=== PATIENT | male | born 1970 | race African-American/Black ===

== ENCOUNTER 2023-04-04 12:52 | Observation (INO) | payer OTHER, SELFPAY ==
[2023-04-04 13:12] LABS: Absolute Lymphocytes (CBC) 1.4 K/uL (0.7-4.9); Lymphocytes % 29.3 % (15.3-44.8); MCV 94.1 fL (80-100); MPV 7.9 fL (7.6-11.3); Platelets 230 thou/uL (152-406); RBC Red Blood Cell Count 5.21 M/uL (4.33-5.43)
[2023-04-04 13:13] LABS: Protime INR 0.95
[2023-04-04] MEDS ORDERED: ASPIRIN 81 MG CHEWABLE TABLET ONE (13:18)
[2023-04-04] MEDS ORDERED: ONDANSETRON 4 MG/2 ML VIAL ONE (13:18)
[2023-04-04] MEDS ORDERED: MORPHINE 4 MG/ML SYR ONE (13:18)
[2023-04-04] MEDS ORDERED: NA CHLORIDE 0.9% 1,000 ML ONE (13:19)
[2023-04-04] MEDS ORDERED: FAMOTIDINE 20 MG/2 ML VIAL IV ONE (13:19)
[2023-04-04 13:30] LABS: Albumin 3.9 g/dL (3.4-5.0); Bilirubin Direct 0.2 mg/dL (0-0.2); Bilirubin Indirect, Calculated 0.4 mg/dL (0.2-0.8); Bilirubin Total 0.6 mg/dL (0.2-1.0); Magnesium 2.1 mg/dL (1.6-2.4); Protein, Total 8.4 g/dL (6.4-8.2); Troponin High Sensitivity 16.6 pg/mL (<58.9)
--- NOTE | 2023-04-04 13:52 | RAD REPORT ---
EXAM DESCRIPTION: RAD - Chest Single View - 04/04/2023 1:45 pm CLINICAL HISTORY: CHEST PAIN Chest pain. COMPARISON: <Comparisons> FINDINGS: Portable technique limits examination quality. The lungs are grossly clear. The heart is normal in size. No displaced fractures. IMPRESSION: No acute intrathoracic process suspected.
--- NOTE | 2023-04-04 13:58 | RAD REPORT ---
EXAM DESCRIPTION: CT - Angio Aorta For Dissection - 04/04/2023 1:44 pm CLINICAL HISTORY: Chest pain radiating to the back. ABD PAIN COMPARISON: <Comparisons> TECHNIQUE: CT angiography of the aorta was performed with MIPs. All CT scans are performed using dose optimization technique as appropriate and may include automated exposure control or mA/KV adjustment according to patient size. FINDINGS: A left aortic arch is present with normal branching pattern of the great vessels.No acute aortic finding is seen such as aneurysm, penetrating ulcer or dissection. The celiac axis, SMA, CLYDE and renal arteries are patent. No evidence of pulmonary embolism. The lungs are clear. The liver demonstrates no focal mass or biliary dilatation.The spleen, pancreas, adrenal glands and k idneys are within normal limits for arterial phase imaging. No bowel obstruction, free fluid or abscess.Normal appendix. Moderate fat containing umbilical hernia .No pathologic enlarged lymphadenopathy identified.Mildly prominent prostate gland projecting into th e bladder base. No fracture or worrisome bone lesion seen. IMPRESSION: No acute aortic finding is demonstrated.
--- NOTE | 2023-04-04 14:31 | ER ---
Nurse's Notes [facility] Name: Nel Cochran Age: 52 yrs Sex: Male : 1970 Arrival Date: 04/04/2023 Time: 12:52 Bed 6 Private MD: Diagnosis: Chest pain, unspecified;Chest pain on breathing;Dyspnea;Essential (primary) hypertension Presentation: 04/04 12:54 Chief complaint: EMS states: "Toned out for left sided chest pain that radiates to left mb9 shoulder, arm, and neck for the past 4 days. Pt states when chest pain occurs, he has difficulty breathing.". Coronavirus screen: Vaccine status: Patient reports receiving the 2nd dose of the covid vaccine. Ebola Screen: No symptoms or risks identified at this time. Initial Sepsis Screen: Does the patient meet any 2 criteria? No. Patient's initial sepsis screen is negative. Does the patient have a suspected source of infection? No. Patient's initial sepsis screen is negative. Risk Assessment: Do you want to hurt yourself or someone else? Patient reports no desire to harm self or others. Onset of symptoms was 2022. 12:54 Method Of Arrival: EMS: [facility] mb9 12:54 Acuity: WANDER 3 mb9 Triage Assessment: 12:57 General: Appears uncomfortable, Behavior is cooperative. Pain: Complains of pain in mb9 chest Pain radiates to left arm and neck Pain currently is 8 out of 10 on a pain scale. Quality of pain is described as sharp, shooting, Pain began 2-3 days ago. Is continuous. Neuro: Bliss Agitation-Sedation Scale (RASS): 0 - Alert and Calm Level of Consciousness is awake, alert, obeys commands, Oriented to person, place, time, situation, Appropriate for age. Cardiovascular: Reports chest pain, shortness of breath, Patient's skin is warm and dry. Respiratory: Airway is patent Respiratory effort is even, unlabored, Respiratory pattern is regular, symmetrical. GI: Patient currently denies nausea. : No signs and/or symptoms were reported regarding the genitourinary system. Derm: Skin is pink, warm \\T\\ dry. Musculoskeletal: Range of motion: intact in all extremities. Historical: - Allergies: 12:56 No Known Allergies; mb9 - Home Meds: 12:56 Lisinopril Oral [Active]; mb9 - PMHx: 12:56 Hypertensive disorder; Hyperthyroidism; mb9 - PSHx: 12:56 Thyroidectomy; mb9 - Immunization history:: Adult Immunizations up to date. - Social history:: Smoking status: Patient reports the use of cigarette tobacco products, smokes one-half pack cigarettes per day. Screenin:58 [facility] ED Fall Risk Assessment (Adult) History of falling in the last 3 months, mb9 including since admission No falls in past 3 months (0 pts) Confusion or Disorientation No (0 pts) Intoxicated or Sedated No (0 pts) Impaired Gait No (0 pts) Mobility Assist Device Used No (0 pt) Altered Elimination No (0 pt) Score/Fall Risk Level 0 - 2 = Low Risk Oriented to surroundings, Maintained a safe environment, Educated pt \\T\\ family on fall prevention, incl call for assistance when getting out of bed. Abuse screen: Denies threats or abuse. Nutritional screening: No deficits noted. Tuberculosis screening: No symptoms or risk factors identified. Assessment: 13:00 General: Appears comfortable, Behavior is calm, cooperative. Pain: Complains of pain in aa5 left side of chest Pain radiates to left arm and neck Pain currently is 6 out of 10 on a pain scale. Quality of pain is described as sharp, shooting, Pain began 4 days ago Is intermittent. Neuro: Level of Consciousness is awake, alert, obeys commands, Oriented to person, place, time, situation. Cardiovascular: Heart tones S1 S2 present Rhythm is regular. Respiratory: Airway is patent Respiratory effort is even, unlabored, Respiratory pattern is regular, symmetrical. GI: Abdomen is round non-distended, Bowel sounds present X 4 quads. Abd is soft and non tender X 4 quads. : No signs and/or symptoms were reported regarding the genitourinary system. EENT: No signs and/or symptoms were reported regarding the EENT system. Derm: Skin is dry, Skin is normal, Skin temperature is warm. Musculoskeletal: Range of motion: intact in all extremities. 14:00 Neuro: Level of Consciousness is awake, alert, obeys commands, Oriented to person, aa5 place, time, situation. Respiratory: Airway is patent Respiratory effort is even, unlabored, Respiratory pattern is regular, symmetrical. Derm: Skin is dry, Skin is normal, Skin temperature is warm. 15:30 Reassessment: No changes from previously documented assessment. General: Appears aa5 comfortable. 17:05 Neuro: Level of Consciousness is awake, alert, obeys commands, Oriented to person, aa5 place, time, situation. Respiratory: Airway is patent Respiratory effort is even, unlabored, Respiratory pattern is regular, symmetrical. Derm: Skin is dry, Skin is normal, Skin temperature is warm. 17:05 Reassessment: Pt requesting dinner. Phlebotomy at bedside drawing admission labs. . aa5 17:11 Reassessment: Attempted to contact Cafe personnel, no answer. . aa5 18:04 Reassessment: Spoke to foundry supervisor to check about pt's food tray. . aa5 Vital Signs: 12:54 BP 146 / 91; Pulse 75; Resp 18; Temp 98.4; Pulse Ox 98% on R/A; Weight 92.99 kg; Height mb9 5 ft. 8 in. ; Pain 8/10; 14:03 BP 133 / 86; Pulse 66; Resp 18; Pulse Ox 95% on R/A; ld1 15:04 BP 157 / 106; Pulse 62; Resp 17; Pulse Ox 99% on R/A; rs5 15:41 BP 150 / 111; Pulse 60; Resp 18; Pulse Ox 98% ; rs5 16:26 BP 141 / 102; Pulse 53; Resp 18; Pulse Ox 96% on R/A; ld1 18:00 BP 137 / 82; Pulse 55; Resp 16 S; Pulse Ox 98% on R/A; aa5 12:54 Body Mass Index 31.17 (92.99 kg, 172.72 cm) mb9 12:54 Pain Scale: Adult mb9 Cee Coma Score: 14:29 Eye Response: spontaneous(4). Motor Response: obeys commands(6). Verbal Response: aditya oriented(5). Total: 15. ED Course: 12:54 Patient arrived in ED. ld1 12:54 Arm band placed on. mb9 12:55 Miles Villagran MD is Attending Physician. aditya 12:56 Triage completed. mb9 12:58 Placed in gown. Bed in low position. Call light in reach. Side rails up X 1. Client mb9 placed on continuous cardiac and pulse oximetry monitoring. NIBP monitoring applied. nuclear power reactor operator on. 13:03 Alvarado, Thea, RN is Primary Nurse. aa5 13:03 Inserted saline lock: 20 gauge in right forearm, using aseptic technique. Blood rs5 collected. 13:44 X-ray completed. Portable x-ray completed in exam room. Patient tolerated procedure 1 well. 13:45 CT Aorta for Dissection In Process Unspecified. EDMS 13:46 XRAY Chest (1 view) In Process Unspecified. EDMS 14:30 Jabier Murillo is Hospitalizing Provider. [facility] 18:15 No provider procedures requiring assistance completed. Patient admitted, IV remains in aa5 place. Administered Medications: 13:10 Drug: Aspirin PO Chewable Tablet 324 mg Route: PO; aa5 14:22 Follow up: Response: No adverse reaction aa5 13:20 Drug: NS 0.9% IV 1000 ml Route: IV; Rate: 125 ml/hr; Site: right forearm; aa5 18:15 Follow up: IV Status: Infusion continued upon admission aa5 13:20 Drug: Famotidine IVP 20 mg Route: IVP; Site: right forearm; aa5 13:30 Follow up: Response: No adverse reaction aa5 13:20 Drug: morphine IVP or IV 4 mg Route: IVP; Infused Over: 4 mins; Site: right forearm; aa5 13:30 Follow up: Response: No adverse reaction aa5 13:20 Drug: Ondansetron IVP 4 mg Route: IVP; Site: right forearm; aa5 13:30 Follow up: Response: No adverse reaction aa5 14:50 Drug: Potassium PO Effervescent Tablet 50 mEq Route: PO; aa5 18:00 Follow up: Response: No adverse reaction aa5 14:50 Drug: Enoxaparin Sub-Q 1 mg/kg Route: Sub-Q; Site: right lower abdomen; aa5 18:00 Follow up: Response: No adverse reaction aa5 Medication: 12:58 VIS not applicable for this client. mb9 Outcome: 14:30 Decision to Hospitalize by Provider. aditya 18:15 Admitted to Tele accompanied by tech, via wheelchair, with chart, Other Report called aa5 to admitting nurse 18:15 Condition: stable 18:15 Instructed on the need for admit, Demonstrated understanding of instructions. 18:20 Patient left the ED. aa5 Signatures: Dispatcher [employer] EDMS Miles Villagran MD MD cha Harvey, Martha mh1 Thea Alvarado, RN RN aa5 Dori Zepeda RN RN ld1 Joann Johnson, RN RN mb9 Kwaku Callejas RN RN rs5
--- NOTE | 2023-04-04 14:31 | EDPHYS ---
Physician Documentation [facility] Name: Nel Cochran Age: 52 yrs Sex: Male : 1970 Arrival Date: 04/04/2023 Time: 12:52 Bed 6 Private MD: ED Physician Miles Villagran HPI: 04/04 14:20 This 52 yrs old Male presents to ER via EMS with complaints of Chest Pain. aditya 14:20 The patient or guardian reports chest pain that is located primarily in the substernal aditya area, anterior chest wall, left. Onset: just prior to arrival, this morning. The pain radiates to left neck, Associated signs and symptoms: The patient has no apparent associated signs or symptoms. The chest pain is described as aching, sharp. Duration: The patient or guardian reports multiple episodes, with no pattern. Modifying factors: The symptoms are alleviated by nothing. the symptoms are aggravated by deep breath, exertion, movement. Severity of pain: At its worst the pain was moderate in the emergency department the pain has improved moderately. The patient has experienced similar episodes in the past, multiple times, FOR 3 WEEKS. Historical: - Allergies: 12:56 No Known Allergies; mb9 - Home Meds: 12:56 Lisinopril Oral [Active]; mb9 - PMHx: 12:56 Hypertensive disorder; Hyperthyroidism; mb9 - PSHx: 12:56 Thyroidectomy; mb9 - Immunization history:: Adult Immunizations up to date. - Social history:: Smoking status: Patient reports the use of cigarette tobacco products, smokes one-half pack cigarettes per day. ROS: 14:22 Constitutional: Negative for fever, chills, and weight loss, Eyes: Negative for injury, aditya pain, redness, and discharge, ENT: Negative for injury, pain, and discharge, Neck: Negative for injury, pain, and swelling, Abdomen/GI: Negative for abdominal pain, nausea, vomiting, diarrhea, and constipation, Back: Negative for injury and pain, : Negative for injury, bleeding, discharge, and swelling, MS/Extremity: Negative for injury and deformity, Skin: Negative for injury, rash, and discoloration, Neuro: Negative for headache, weakness, numbness, tingling, and seizure, Psych: Negative for depression, anxiety, suicide ideation, homicidal ideation, and hallucinations, Allergy/Immunology: Negative for hives, rash, and allergies, Endocrine: Negative for neck swelling, polydipsia, polyuria, polyphagia, and marked weight changes, Hematologic/Lymphatic: Negative for swollen nodes, abnormal bleeding, and unusual bruising. 14:22 Cardiovascular: Positive for chest pain, of the chest. 14:22 Respiratory: Positive for shortness of breath. Exam: 14:22 Constitutional: This is a well developed, well nourished patient who is awake, alert, aditya and in no acute distress. Head/Face: Normocephalic, atraumatic. Eyes: Pupils equal round and reactive to light, extra-ocular motions intact. Lids and lashes normal. Conjunctiva and sclera are non-icteric and not injected. Cornea within normal limits. Periorbital areas with no swelling, redness, or edema. ENT: Nares patent. No nasal discharge, no septal abnormalities noted. Tympanic membranes are normal and external auditory canals are clear. Oropharynx with no redness, swelling, or masses, exudates, or evidence of obstruction, uvula midline. Mucous membranes moist. Neck: Trachea midline, no thyromegaly or masses palpated, and no cervical lymphadenopathy. Supple, full range of motion without nuchal rigidity, or vertebral point tenderness. No Meningismus. Chest/axilla: Normal chest wall appearance and motion. Nontender with no deformity. No lesions are appreciated. Cardiovascular: Regular rate and rhythm with a normal S1 and S2. No gallops, murmurs, or rubs. Normal PMI, no JVD. No pulse deficits. Respiratory: Lungs have equal breath sounds bilaterally, clear to auscultation and percussion. No rales, rhonchi or wheezes noted. No increased work of breathing, no retractions or nasal flaring. Abdomen/GI: Soft, non-tender, with normal bowel sounds. No distension or tympany. No guarding or rebound. No evidence of tenderness throughout. Back: No spinal tenderness. No costovertebral tenderness. Full range of motion. Skin: Warm, dry with normal turgor. Normal color with no rashes, no lesions, and no evidence of cellulitis. MS/ Extremity: Pulses equal, no cyanosis. Neurovascular intact. Full, normal range of motion. Neuro: Awake and alert, GCS 15, oriented to person, place, time, and situation. Cranial nerves II-XII grossly intact. Motor strength 5/5 in all extremities. Sensory grossly intact. Cerebellar exam normal. Normal gait. Psych: Awake, alert, with orientation to person, place and time. Behavior, mood, and affect are within normal limits. 14:22 Musculoskeletal/extremity: Extremities: all appear grossly normal, with no appreciated pain with palpation, ROM: full active range of motion, full passive range of motion, Circulation is intact in all extremities. Sensation intact. Compartment Syndrome exam of affected extremity: is normal. Weight bearing: able to fully bear weight, without difficulty, DVT Exam: No signs of deep vein thrombosis. no pain, no swelling, no tenderness, negative Homans' sign noted on exam, no appreciated bluish discoloration, no erythema, no increased warmth. 14:29 ECG was reviewed by the Attending Physician. [facility] Vital Signs: 12:54 BP 146 / 91; Pulse 75; Resp 18; Temp 98.4; Pulse Ox 98% on R/A; Weight 92.99 kg; Height mb9 5 ft. 8 in. ; Pain 8/10; 14:03 BP 133 / 86; Pulse 66; Resp 18; Pulse Ox 95% on R/A; ld1 15:04 BP 157 / 106; Pulse 62; Resp 17; Pulse Ox 99% on R/A; rs5 15:41 BP 150 / 111; Pulse 60; Resp 18; Pulse Ox 98% ; rs5 16:26 BP 141 / 102; Pulse 53; Resp 18; Pulse Ox 96% on R/A; ld1 18:00 BP 137 / 82; Pulse 55; Resp 16 S; Pulse Ox 98% on R/A; aa5 12:54 Body Mass Index 31.17 (92.99 kg, 172.72 cm) mb9 12:54 Pain Scale: Adult mb9 [place] Coma Score: 14:29 Eye Response: spontaneous(4). Motor Response: obeys commands(6). Verbal Response: aditya oriented(5). Total: 15. MDM: 12:55 Patient medically screened. [facility] 14:26 Antibiotic administration: Not indicated. Differential diagnosis: Anemia Anxiety aditya Reaction asthma, Bronchitis CHF exacerbation, abnormal EKG, acute myocardial infarction, acute pericarditis, anxiety, coronary artery disease chest wall pain, congestive heart failure Cholelithiasis hiatal hernia, pancreatitis, peptic ulcer disease, pericarditis, pleurisy, pneumonia, pneumothorax, pulmonary embolus, stable angina, thoracic aortic disection, unstable angina, Myocardial Infarction Pneumothorax pulmonary edema, reactive airway disease. Differential Diagnosis altered mental status. HEART Score: History: Moderately Suspicious (1), ECG: Normal (0), Age: > 45 and < 65 years (1), Risk Factors: > or = 3 Risk factors for atherosclerotic disease (2), [Hypercholesterolemia] [Hypertension] [+ Family HX] Troponin: < or = 1 x Normal Limit (0). The patient was given aspirin in the Emergency Department. Immunization status: Influenza vaccine: within last 5 years. Data reviewed: vital signs, nurses notes, lab test result(s), EKG, radiologic studies, CT scan, plain films. Consideration of Admission/Observation Patient was admitted/placed on observation. Escalation of care including admission/observation considered. I considered the following discharge prescriptions or medication management in the emergency department Medications were administered in the Emergency Department. See MAR. Independent interpretation of the following test(s) in the Emergency Department EKG: See my EKG interpretation above. Test considered but Not performed: Ultrasound NO US GB. Historians other than the Patient: Family Member: . Care significantly affected by the following chronic conditions: Hypertension. Counseling: I had a detailed discussion with the patient and/or guardian regarding: the historical points, exam findings, and any diagnostic results supporting the discharge/admit diagnosis, the presence of at least one elevated blood pressure reading (>120/80) during this emergency department visit, lab results, radiology results, the need for further work-up and treatment in the hospital. 04/04 12:56 Order name: Basic Metabolic Panel; Complete Time: 14:18 [facility] 04/04 12:56 Order name: CBC with Diff; Complete Time: 14:18 aditya 04/04 12:56 Order name: LFT's; Complete Time: 14:18 [facility] 04/04 12:56 Order name: Magnesium; Complete Time: 14:18 04/04 12:56 Order name: NT PRO-BNP; Complete Time: 14:18 04/04 12:56 Order name: PT-INR; Complete Time: 14:18 04/04 12:56 Order name: Troponin HS; Complete Time: 14:18 04/04 12:56 Order name: Lipase; Complete Time: 14:18 [facility] 04/04 12:56 Order name: Urinalysis w/ reflexes; Complete Time: 23:37 aditya 04/04 14:20 Order name: TSH; Complete Time: 23:37 aditya 04/04 15:05 Order name: T4 Free; Complete Time: 23:37 EDMS 04/04 16:14 Order name: Magnesium; Complete Time: 23:37 EDMS 04/04 16:14 Order name: Phosphorus; Complete Time: 23:37 EDMS 04/04 16:14 Order name: Urinalysis w/ reflexes EDMS 04/04 16:14 Order name: Basic Metabolic Panel EDMS 04/04 16:14 Order name: Basic Metabolic Panel EDMS 04/04 16:14 Order name: CBC with Automated Diff EDMS 04/04 16:14 Order name: CBC with Automated Diff EDMS 04/04 16:14 Order name: Lipid Profile EDMS 04/04 16:14 Order name: Lipid Profile EDMS 04/04 16:15 Order name: Hemoglobin A1c; Complete Time: 23:37 EDMS 04/04 16:16 Order name: Troponin High Sensitivity EDMS 04/04 16:16 Order name: Troponin High Sensitivity; Complete Time: 23:37 EDMS 04/04 16:16 Order name: Troponin High Sensitivity; Complete Time: 23:37 EDMS 04/04 16:19 Order name: Basic Metabolic Panel; Complete Time: 23:37 EDMS 04/04 12:56 Order name: XRAY Chest (1 view); Complete Time: 14:18 aditya 04/04 13:00 Order name: CT Aorta for Dissection; Complete Time: 14:18 aditya 04/04 14:20 Order name: Echo w/ Doppler [facility] 04/04 12:56 Order name: EKG; Complete Time: 12:57 aditya 04/04 16:14 Order name: CONS Physician Consult EDKS 04/04 16:14 Order name: Heart Healthy EDMS 04/04 12:56 Order name: Cardiac monitoring; Complete Time: 12:58 aditya 04/04 12:56 Order name: EKG - Nurse/Tech; Complete Time: 13:03 aditya 04/04 12:56 Order name: IV Saline Lock; Complete Time: 13:03 aditya 04/04 12:56 Order name: Labs collected and sent; Complete Time: 13:03 04/04 12:56 Order name: O2 Per Protocol; Complete Time: 12:59 04/04 12:56 Order name: O2 Sat Monitoring; Complete Time: 12:59 aditya EC:29 Rate is 64 beats/min. Rhythm is regular. QRS [place] is Normal. [place] interval is normal. QRS aditya interval is normal. QT interval is normal. No Q waves. T waves are Normal. No ST changes noted. Clinical impression: NSR w/ Non-specific ST/T Changes and No evidence of ischemia. Interpreted by me. Reviewed by me. Administered Medications: 13:10 Drug: Aspirin PO Chewable Tablet 324 mg Route: PO; aa5 14:22 Follow up: Response: No adverse reaction aa5 13:20 Drug: NS 0.9% IV 1000 ml Route: IV; Rate: 125 ml/hr; Site: right forearm; aa5 18:15 Follow up: IV Status: Infusion continued upon admission aa5 13:20 Drug: Famotidine IVP 20 mg Route: IVP; Site: right forearm; aa5 13:30 Follow up: Response: No adverse reaction aa5 13:20 Drug: morphine IVP or IV 4 mg Route: IVP; Infused Over: 4 mins; Site: right forearm; aa5 13:30 Follow up: Response: No adverse reaction aa5 13:20 Drug: Ondansetron IVP 4 mg Route: IVP; Site: right forearm; aa5 13:30 Follow up: Response: No adverse reaction aa5 14:50 Drug: Potassium PO Effervescent Tablet 50 mEq Route: PO; aa5 18:00 Follow up: Response: No adverse reaction aa5 14:50 Drug: Enoxaparin Sub-Q 1 mg/kg Route: Sub-Q; Site: right lower abdomen; aa5 18:00 Follow up: Response: No adverse reaction aa5 Disposition Summary: 04/04/23 14:30 Hospitalization Ordered Hospitalization Status: Observation aditya Provider: Jabier Murillo cha Location: Telemetry/MedSurg (observation) aditya Condition: Stable aditya Problem: new aditya Symptoms: have improved aditya Bed/Room Type: Standard aditya Room Assignment: 414(04/04/23 18:03) bd Diagnosis - Chest pain, unspecified aditya - Chest pain on breathing aditya - Dyspnea aditya - Essential (primary) hypertension aditya Forms: - Medication Reconciliation Form aditya - SBAR form aditya - Leadership Thank You Letter aditya Signatures: Dispatcher [employer] Tanya Salamanca FNP-C [employer] Deborah Patel Diana, RN RN dw Anderson, Corey, MD MD cha Calderon, Audri RN RN aa5 Joann Johnson RN RN mb9 Corrections: (The following items were deleted from the chart) 17:54 14:30 aditya stevens 18:03 17:[address] [place] [address]
[2023-04-04] MEDS ORDERED: ENOXAPARIN 100 MG/ML SYR SQ ONE (14:51)
[2023-04-04] MEDS ORDERED: POTASSIUM 25 MEQ EFFERV TAB ONE (14:51)
[2023-04-04 15:02] LABS: Thyroid Stimulating Hormone 8.43 uIU/mL (0.358-3.740)
[2023-04-04 15:22] LABS: Urine Bilirubin NEGATIVE (Negative); Urine Blood Negative (Negative); Urine Clarity Clear (Clear); Urine Color Colorless (Yellow); Urine Glucose NEGATIVE (Negative); Urine Protein NEGATIVE (Negative); Urine Urobilinogen Normal (Normal)
[2023-04-04 15:23] LABS: Specific Gravity > 1.030 (1.005-1.030)
[2023-04-04] MEDS ORDERED: ACETAMINOPHEN 325 MG TABLET PO PRN (16:09)
[2023-04-04] MEDS ORDERED: HYDROCODONE/APAP 5/325 MG TAB PO PRN (16:09)
[2023-04-04] MEDS ORDERED: ONDANSETRON 4 MG/2 ML VIAL IV PRN (16:12)
--- NOTE | 2023-04-04 16:15 | P.HP ---
Certification for Inpatient Patient admitted to: Observation With expected LOS: <2 Midnights Patient will require the following post-hospital care: None Practitioner: I am a practitioner with admitting privileges, knowledge of patient current condition, hospital course, and medical plan of care. Services: Services provided to patient in accordance with Admission requirements found in Title 42 Section 412.3 of the Code of Federal Regulations Patient History Date of Service: 04/04/23 Reason for admission: Chest pain History of Present Illness: Patient is a 52-year-old male with a past medical history significant for hypertension, hyperthyroidism, nicotine dependence who presents with complaint of left chest pain that is being ongoing intermittently for the past 4 days. Patient rated pain as 10/10 in severity and described pain as stabbing in quality. Patient indicated that pain radiates to his back, neck, shoulder and left arm. Patient reported associated signs and symptoms of left finger tingling and shortness of breath. Patient denies any other signs or symptoms. Symptoms are aggravated or relieved by nothing. Patient decided to present to the hospital for medical evaluation. Allergies No Known Allergies Allergy (Unverified 04/04/23 16:19) - Past Medical/Surgical History -: Hypertension -: Hyperthyroidism -: Nicotine dependence. -: Thyroidectomy - Family History Father -: Hypertension, Stroke, Other (see notes) (Thyroid disease) Mother -: Hypertension, Other (see notes) (Thyroid disease) - Social History Smoking Status: Current every day smoker Counseled patient to stop smoking for: less than 10 minutes Smoking therapy provided: Yes Patient receptive to therapy: Yes Alcohol use: Yes CD- Drugs: No Caffeine use: Yes Place of Residence: Home Review of Systems General: Unremarkable Eyes: Unremarkable ENT: Unremarkable Respiratory: Shortness of Breath, Unremarkable Cardiovascular: Chest Pain Gastrointestinal: Unremarkable Genitourinary: Unremarkable Musculoskeletal: Neck Pain, Shoulder Pain, Arm Pain, Back Pain Integumentary: Unremarkable Neurological: Other (Left fingers tingling) Lymphatics: Unremarkable Physical Examination - Physical Exam General: Alert, In no apparent distress, Oriented x3, Cooperative HEENT: Atraumatic, PERRLA, Mucous membr. moist/pink, EOMI, Sclerae nonicteric Neck: Supple, 2+ carotid pulse no bruit, No LAD, Without JVD or thyroid abnormality Respiratory: Clear to auscultation bilaterally, Normal air movement Cardiovascular: No edema, Regular rate/rhythm, Normal S1 S2 Capillary refill: <2 Seconds Gastrointestinal: Normal bowel sounds, Soft and benign, Non-distended, No tenderness Musculoskeletal: No clubbing, No swelling, No tenderness Integumentary: No rashes, No significant lesion Neurological: Normal gait, Normal speech, Normal strength at 5/5 x4 extr, Normal tone, Normal affect Lymphatics: No axilla or inguinal lymphadenopathy - Studies Laboratory Data (last 24 hrs) 04/04/23 04/04/23 04/04/23 12:59 12:59 12:59 WBC 4.90 Hgb 16.7 Hct 49.0 Plt Count 230 PT 10.5 INR 0.95 Sodium 134 L Potassium 3.0 L BUN 18 Creatinine 1.37 H Glucose 125 H Magnesium 2.1 Total Bilirubin 0.6 AST 33 ALT 41 Alkaline Phosphatase 62 Lipase 51 Assessment and Plan - Plan --Chest pain. To rule out ACS. Will trend serial troponins--negative so far. Echocardiogram pending to assess cardiac structures and function. Director Of Services consulted. Telemetry to monitor for any significant arrhythmia. We will await further recommendations from bicycle repair technician. -- Hypertension. Poorly controlled. We will manage BP with labetalol as needed. --Nicotine dependence. Patient placed on nicotine patch and counseled on tobacco cessation. --Hyperthyroidism. Continue home medication. -- Hypokalemia. Replete as needed. --CKD 2. Baseline functions unknown. We will continue to monitor renal functions. --Acute pain. We will manage pain with current pain medication regimen. --DVT prophylaxis with Lovenox subQ. Discharge Plan: Home Plan to discharge in: 48 Hours - Advance Directives Does patient have a Living Will: No Does patient have a Durable POA for Healthcare: No - Code Status/Comfort Care Code Status Assessed: Yes Physician Review: Patient Assessed, Agree with Above Assessment and Plan Critical Care: No
[2023-04-04 17:34] LABS: Magnesium 2.3 mg/dL (1.6-2.4); Phosphorus 4.1 mg/dL (2.5-4.9); Potassium 3.5 mEq/L (3.5-5.1)
[2023-04-04 18:52] VITALS: BMI 31.1
[2023-04-04] MEDS ORDERED: LABETALOL 20 MG/4ML SYRINGE IV PRN (19:15)
--- NOTE | 2023-04-04 19:54 | CON ---
Date of Consultation: 04/04/2023 Reason For Consultation: Chest pain. History Of Present Illness: A 52-year-old male with history of hypertension, hypothyroidism, present ed with chest pain. It is like a focal around the left breast and radiates to his neck. Pain can be 10/10, but certain chest wall movements and neck movements produces it, but there is no reproducible pain. Denies having any exertional chest pain, but he is not doing any strenuous activities lately. This has been going on and off for the past 2 days. No active chest pain. The present time. Past Medical History: Hypertension, hypothyroidism. Medications: Refer to reconciliation sheet for detailed list. Allergies: NO KNOWN DRUG ALLERGIES. Family History: No premature coronary artery disease or cancer. Social History: He is an active smoker about a pack per day. He does not use any drugs. He drinks alcohol regularly. Review of Systems: All systems reviewed and they were negative except what mentioned in HPI. Physical Examination: Vital Signs: Reviewed. Head and Neck: Pupils are equal, reactive to light. Intact eye movements. No JVD. No cervical lym phadenopathy. Neck is supple. Thyroid is not enlarged. Lungs: Clear to auscultation bilaterally. No rhonchi, wheezing, or crackles. No accessory muscle u se. Heart: Regular rate and rhythm. No extra sounds. Abdomen: Soft, nontender. Bowel sounds positive. No organomegaly. No masses or hernia. No rigidi ty or rebound. Extremities: No edema, clubbing, or cyanosis. Intact pulses. Skin: No rash. Neurologic: Alert, awake, oriented x3. No acute focal deficits appreciated. Investigations: Cardiac enzymes; he had 2 sets already, they were negative. BUN is 17, creatinine 1 .36, and hemoglobin is 16.7. Assessment And Recommendations: 1.Chest pain. Some typical features, but it could be musculoskeletal. Cardiac enzymes are negative . Given the fact that I could not reproduce the pain, I recommend a stress test and an echocardiogra m tomorrow morning and plan accordingly. For now baby aspirin and pain control using nitroglycerin i f needed. 2.Hypertension. Blood pressure is borderline. Resume home medications and adjust as needed. SR/MODL Voice ID: [id number] Report ID: [id number]
[2023-04-05 06:36] LABS: Absolute Lymphocytes (CBC) 1.8 K/uL (0.7-4.9); Hematocrit 46.8 % (39.6-49.0); MCV 94.8 fL (80-100); MPV 7.9 fL (7.6-11.3); Platelets 221 thou/uL (152-406); RBC Red Blood Cell Count 4.94 M/uL (4.33-5.43)
[2023-04-05 07:03] LABS: BUN Blood Urea Nitrogen 17 mg/dL (7-18); Bicarbonate 30 mEq/L (21-32); Glomerular Filtration Rate 61 ml/min (=/>90); Glucose Level 103 mg/dL (74-106); HDL Cholesterol 34 mg/dL (40-60); Potassium 3.2 mEq/L (3.5-5.1); Sodium Level 136 mEq/L (136-145)
[2023-04-05] MEDS ORDERED: REGADENOSON 0.4 MG/5 ML SYR IV ONE (07:28)
[2023-04-05 07:35] LABS: LDL, Direct 104 mg/dL (100-129)
[2023-04-05 08:32] VITALS: BP 144/98; TEMP 97.2
--- NOTE | 2023-04-05 08:40 | RAD REPORT ---
EXAM DESCRIPTION: NM - Rest Stress Cardiac Imaging - 04/05/2023 8:23 am CLINICAL HISTORY: Chest pain. COMPARISON: None. TECHNIQUE: The patient was administered 10.9 mCi of Tc 99m Sestamibi prior to resting SPECT imaging of the heart. The patient was then administered 31.7 mCi of Tc 99m Sestamibi following exercise or ph armacologic stress. Multiplanar SPECT images were reviewed. FINDINGS: There is uniformity of radiotracer uptake involving the entire left ventricular myocardiu m on rest and stress images. The left ventricular ejection fraction equals 44% IMPRESSION: Negative for a myocardial perfusion defect
[2023-04-05] MEDS ORDERED: ASPIRIN 81 MG CHEWABLE TABLET PO SCH (09:00)
[2023-04-05] MEDS ORDERED: NICOTINE 21 MG/PAT TD SCH (09:00)
[2023-04-05] MEDS ORDERED: POTASSIUM CL SA 10 MEQ TAB PO ONE (09:00)
[2023-04-05] MEDS ORDERED: ENOXAPARIN 40 MG/0.4 ML SQ SCH (09:00)
--- NOTE | 2023-04-05 09:21 | P.DS ---
Admission Date: 04/04/23 Discharge Date: 04/05/23 Disposition: ROUTINE DISCHARGE Discharge Condition: GOOD Reason for Admission: Chest pain Consultations: Cardiology - Dr. Dejesus Brief History of Present Illness: 52yo M, PMH: hypertension, hyperthyroidism, nicotine dependence Patient presents with complaint of left chest pain that is being ongoing intermittently for the past 4 days. Patient rated pain as 10/10 in severity and described pain as stabbing in quality. Patient indicated that pain radiates to his back, neck, shoulder and left arm. Patient reported associated signs and symptoms of left finger tingling and shortness of breath. Patient denies any other signs or symptoms. Symptoms are aggravated or relieved by nothing. Hospital Course: Problem List: Chest pain Hypertension Hyperthyroidism Nicotine Dependence Hypokalemia CKD 2 Patient presented with intermittent chest pain. Troponins were negative. EKG normal, BNP normal, chest x-ray, CT chest were negative for any acute findings, no Pulmonary embolism. Cardiology was consulted. Dr. Dejesus recommended stress test which was negative. No acute findings to warrant further inpatient evaluation, and chest pain atypical. Echo was performed prior to discharge. Patient to follow up with Cardiology. Chest pain sounded MSK in etiology, however not reproducible on exam with palpation. Not entirely consistent with GERD either. Follow up: PCP in 3-5 days Cardiology within 1-2 weeks Physical Exam: GEN: Alert, oriented, NAD HEENT: Normal conjunctiva, sclera anicteric CV: Regular rate and rhythm, no edema Pulm: Nonlabored respirations on room air ABD: Soft, nontender, nondistended MSK: No chest wall tenderness Neuro: Normal speech, normal affect Vital Signs/Physical Exam: Temp Pulse Resp BP Pulse Ox 97.2 F 62 16 144/98 H 98 04/05/23 08:00 04/05/23 08:00 04/05/23 08:00 04/05/23 08:00 04/05/23 08:00 Laboratory Data at Discharge: WBC 4.30 thou/uL (4.3-10.9) 04/05/23 05:51 Hgb 15.9 g/dL (13.6-17.9) 04/05/23 05:51 Hct 46.8 % (39.6-49.0) 04/05/23 05:51 Plt Count 221 thou/uL (152-406) 04/05/23 05:51 PT 10.5 SECONDS (9.5-12.5) 04/04/23 12:59 INR 0.95 04/04/23 12:59 Sodium 136 mEq/L (136-145) 04/05/23 05:51 Potassium 3.2 mEq/L (3.5-5.1) L 04/05/23 05:51 BUN 17 mg/dL (7-18) 04/05/23 05:51 Creatinine 1.37 mg/dL (0.70-1.30) H 04/05/23 05:51 Glucose 103 mg/dL (74-106) 04/05/23 05:51 Phosphorus 4.1 mg/dL (2.5-4.9) 04/04/23 17:05 Magnesium 2.3 mg/dL (1.6-2.4) 04/04/23 17:05 Total Bilirubin 0.6 mg/dL (0.2-1.0) 04/04/23 12:59 AST 33 U/L (15-37) 04/04/23 12:59 ALT 41 U/L (16-61) 04/04/23 12:59 Alkaline Phosphatase 62 U/L (45-117) 04/04/23 12:59 Triglycerides 427 mg/dL (<150) H 04/05/23 05:51 Cholesterol 185 mg/dL (<200) 04/05/23 05:51 LDL Cholesterol Direct 104 mg/dL (100-129) 04/05/23 05:51 HDL Cholesterol 34 mg/dL (40-60) L 04/05/23 05:51 Cholesterol/HDL Ratio 5.44 04/05/23 05:51 Lipase 51 U/L (13-75) 04/04/23 12:59 Physician Discharge Instructions: Patient presented with intermittent chest pain. Troponins were negative. EKG normal, BNP normal, chest x-ray, CT chest were negative for any acute findings, no Pulmonary embolism. Cardiology was consulted. Dr. Dejesus recommended stress test which was negative. No acute findings to warrant further inpatient evaluation, and chest pain atypical. Follow up: PCP in 3-5 days Cardiology within 1-2 weeks Followup: NONE,NONE [Primary Care Provider] - Time spent managing pt's care (in minutes): 45
[2023-04-05 10:19] VITALS: O2SAT 97
--- NOTE | 2023-04-05 17:04 | EKG ---
Test Date: 2023-04-04 Test Time: 13:00:10 Manager Lan: AMIE MEASUREMENT RESULTS: Intervals: Rate: 64 KS: 168 QRSD: 98 QT: 332 QTc: 342 [place]: P: 44 KS: 168 QRS: 251 T: 23 INTERPRETIVE STATEMENTS: Normal sinus rhythm Right superior axis deviation Nonspecific T wave abnormality Abnormal ECG No previous ECG available for comparison Electronically Signed On 04-05-23 17:02:53 CDT by Spencer Dejesus
--- NOTE | 2023-04-06 06:59 | ECHO ---
HEIGHT: 5 ft 8 in WEIGHT: 204 lb 12.951 oz DATE OF STUDY: 04/05/[address]: Miles Villagran MD 2-DIMENSIONAL: YES M.MODE: YES DOPPLER: YES COLOR FLOW: YES TDS: PORTABLE: YES DEFINITY: BUBBLE STUDY: DIAGNOSIS: CHEST PAIN CARDIAC HISTORY: CATHERIZATION: NO SURGERY: NO PROSTHETIC VALVE: NO PACEMAKER: NO MEASUREMENTS (cm) DIASTOLIC (NORMALS) SYSTOLIC (NORMALS) IVSd 1.2 (0.6-1.2) LA Diam 3.0 (1.9-4.0) LVEF 63% LVIDd 4.3 (3.5-5.7) LVIDs 2.9 (2.0-3.5) %FS 34% LVPWd 1.3 (0.6-1.2) Ao Diam 2.9 (2.0-3.7) 2 DIMENSIONAL ASSESSMENT: RIGHT ATRIUM: NORMAL LEFT ATRIUM: NORMAL RIGHT VENTRICLE: NORMAL LEFT VENTRICLE: NORMAL TRICUSPID VALVE: NORMAL MITRAL VALVE: NORMAL PULMONIC VALVE: NORMAL AORTIC VALVE: NORMAL PERICARDIAL EFFUSION: NONE AORTIC ROOT: NORMAL LEFT VENTRICULAR WALL MOTION: NORMAL DOPPLER/COLOR FLOW: SEE BELOW COMMENTS: 1. NORMAL LEFT VENTRICULAR EJECTION FRACTION 55-60% 2. NORMAL WALL MOTION 3. GRADE I DIASTOLIC DYSFUNCTION 4. MILD AORTIC INSUFFICIENCY 5. MILD PULMONIC INSUFFICIENCY 6. MILD CONCENTRIC LEFT VENTRICULAR HYPERTROPHY TECHNOLOGIST: TED CAMPBELL
--- NOTE | 2023-04-06 07:20 | TREADPHA ---
DX: CHEST PAIN Date of Study: 04/05/2023 Ht: 5' 8 " Wt: 204 lb 12.951 oz Consulting Physician: DAVID MEDICATIONS: TYLENOL, NORCO, ASPIRIN, LOVENOX, TRANDATE, NICODERM, ZOFRAN HISTORY: HYPERTENSION, SMOKER - 15 YEARS, THYROID REMOVED PHYSICIAL EXAMINATION: RESTING B.P.: 117/79 RESTING H.R.: 50 RESTING EKG: NORMAL SINUS RHYTHM PROTOCOL: PHARMACOLOGIC EXERCISE TIME: 3:30 B.P. AT [place] STRESS: 122/90 IMPRESSION: LEXISCAN STRESS TEST PERFORMED. CARDIOLITE INJECTED PER PROTOCOL. (SEE NUCLEAR MEDICINE REPORT). NO CHEST PAIN, SHORTNESS OF BREATH NOTED. NO SUPRAVENTRICULAR TACHYCARDIA, VENTRICULAR TACHYCARDIA OR ARRHYTHMIAS NOTED. NO ELECTROCARDIOGRAM CHANGES OF ISCHEMIA WITH LEXISCAN.
== END 2023-04-05 11:00 | disposition home or self-care (01) ==
LOC: ER 12:52 → ERHOLD 16:08 → 4TH 18:16
PROVIDERS: ADMIT Internal Medicine; ATTEND Hospitalist
DX: R07.89 Other chest pain (principal); I12.9 Hypertensive chronic kidney disease with stage 1 through stage 4 chronic kidney disease, or unspecified chronic kidney disease; N18.2 Chronic kidney disease, stage 2 (mild); E87.6 Hypokalemia; R06.02 Shortness of breath; R20.2 Paresthesia of skin; E05.90 Thyrotoxicosis, unspecified without thyrotoxic crisis or storm; M54.2 Cervicalgia; M25.519 Pain in unspecified shoulder; M54.9 Dorsalgia, unspecified; M79.603 Pain in arm, unspecified; E89.0 Postprocedural hypothyroidism; F17.210 Nicotine dependence, cigarettes, uncomplicated; Z71.6 Tobacco abuse counseling; Z82.3 Family history of stroke; Z82.49 Family history of ischemic heart disease and other diseases of the circulatory system
CPT/HCPCS: 96361; 93005; 93017; 93306; 85025 ×2; 80048 ×3; 36415; 83721; 83735 ×2; 84100; 85610; 80061; 80076; 84443; 81003; 83036; 84484 ×3; 84439; 83690; 83880; 71275; 74175; 71045; 78452; 96375; 96372; 96374; 99285; Q9967; J1650; J2785; J2405; J7030; A9500